=== PATIENT | male | born 1980 | race American Indian/Alaskan Native ===

== ENCOUNTER 2016-11-12 22:28 | Emergency (ER) | payer MEDICARE, MEDICAID ==
--- NOTE | 2016-11-12 23:32 | C.PDOC ---
History Of Present Illness <Liliana Melendrez Sejal - Last Filed: 11/12/16 23:17> <Reny Mcpherson - Last Filed: 11/13/16 04:07> Patient BIBA for evaluation of nausea/vomiting/diarrhea (with blood streaks), as well as SOB. Patient has h/o ESRD on HD (M,W,F) - states last dialyisis was this past (1 day late). He denies chest pain, palpitations, fever. Patient recently moved her from 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 (Reny Mcpherson) <AneeshLiliana Sejal - Last Filed: 11/12/16 23:17> History Per: Patient, EMS History/Exam Limitations: no limitations Onset/Duration Of Symptoms: Days (2) Current Symptoms Are (Timing): Still Present Severity: Moderate Pain Scale Rating Of: 1 Quality Of Discomfort: "Pain" Associated Symptoms: Nausea, Vomiting, Diarrhea <Reny Mcpherson - Last Filed: 11/13/16 04:07> Chief Complaint (Nursing): Abdominal Pain Past Medical History - Medical History PMH: HTN, Hypercholesterolemia, Chronic Kidney Disease - Social History Hx Alcohol Use: No Hx Substance Use: No - Immunization History Hx Tetanus Toxoid Vaccination: No Hx Influenza Vaccination: Yes Hx Pneumococcal Vaccination: Yes <Mars Melendreztlin Sejal - Last Filed: 11/12/16 23:17> Reviewed: Historical Data, Nursing Documentation, Vital Signs - Medical History PMH: End Stage Renal Disease, Chronic Kidney Disease Family History: States: No Known Family Hx <Reny Mcpherson - Last Filed: 11/13/16 04:07> Vital Signs: Last Vital Signs Temp 97.6 F 11/13/16 01:30 Pulse 65 11/13/16 01:30 Resp 17 11/13/16 01:30 BP 126/91 H 11/13/16 01:30 Pulse Ox 98 11/13/16 01:30 - [facility] Procedures HEMODIALYSIS (07/09/13) Review Of Systems Except As Marked, All Systems Reviewed And Found Negative. Constitutional: Negative for: Fever, Chills Cardiovascular: Negative for: Chest Pain, Palpitations Respiratory: Positive for: Shortness of Breath. Negative for: Cough Gastrointestinal: Positive for: Nausea, Vomiting, Abdominal Pain, Diarrhea ( blood streaked) <Reny Mcpherson - Last Filed: 11/13/16 04:07> Physical Exam - Physical Exam Appears: Well, Non-toxic, No Acute Distress, Other (speaking in full sentences) Skin: Normal Color, Warm, Dry, No Rash Eye(s): bilateral: Normal Inspection Oral Mucosa: Moist Cardiovascular: Rhythm Regular Respiratory: Normal Breath Sounds, No Accessory Muscle Use, No Rales, No Rhonchi , No Wheezing Gastrointestinal/Abdominal: Bowel Sounds, Soft, Tenderness (mild diffuse TTP, (- ) McBurney's, (-) Klein's) Extremity: Other (LUE AV fistula with palpable thrill) <Reny Mcpherson - Last Filed: 11/13/16 04:07> ED Course And Treatment O2 Sat by Pulse Oximetry: 100 <Liliana Melendrez - Last Filed: 11/12/16 23:17> - Laboratory Results Result Diagrams: 11/13/16 02:14 O2 Sat by Pulse Oximetry: 100 (RA) Pulse Ox Interpretation: Normal - Radiology CXR: Interpreted by Me, Viewed By Me ((+) pulmonary vascular congestion) Progress Note: Blood work, CXR , EKG ordered and reviewed. Patient given IV Morphine for pain. 3:00am - As per nurse, patient eloped from ED after she removed his IV at his request. <Reny Mcpherson - Last Filed: 11/13/16 04:07> Disposition <Liliana Melendrez - Last Filed: 11/12/16 23:17> - Disposition Disposition Time: 03:00 <Reny Mcpherson - Last Filed: 11/13/16 04:07> - Disposition Disposition: ELOPEMENT - ER ONLY Condition: STABLE Forms: [employer] ([place]) - Clinical Impression Clinical Impression: ESRD on hemodialysis, Nausea, Vomiting, Diarrhea, Abdominal pain, Dyspnea
[2016-11-13 01:32] VITALS: BP 126/91; PULSE 65; RESP 17; TEMP 97.6
[2016-11-13 02:54] LABS: POTASSIUM 5.9 mmol/L (3.6-5.2)
[2016-11-13 02:57] LABS: ALB/GLOB RATIO 0.9 (1.0-2.1); CALCIUM 7.4 mg/dl (8.6-10.4); TOTAL PROTEIN 7.7 g/dL (6.3-8.3)
[2016-11-13 03:10] LABS: TROPONIN I 0.013 ng/mL (0.00-0.120)
[2016-11-13 04:06] VITALS: O2SAT 100
--- NOTE | 2016-11-13 09:34 | RAD ---
PROCEDURE: CHEST RADIOGRAPH, 1 VIEW HISTORY: SOB COMPARISON: No prior study available comparison. FINDINGS: LUNGS: Poor inspiration with low lung volumes, crowded bronchovascular markings and bibasilar atelectasis and/or infiltrates right greater than left. Developing infiltrates should be excluded followup radiographs. PLEURA: No pneumothorax or pleural fluid seen. CARDIOVASCULAR: Heart size appears upper limits of normal/ borderline likely in part due to poor inspiration and low lung volumes as well. OSSEOUS STRUCTURES: No significant abnormalities. VISUALIZED UPPER ABDOMEN: Normal. OTHER FINDINGS: None. IMPRESSION: Poor inspiration with low lung volumes, crowded bronchovascular markings and bibasilar atelectasis and/or infiltrates right greater than left. Developing infiltrates should be excluded followup radiographs.
== END 2016-11-13 03:03 | disposition left against medical advice (07) ==
LOC: C.ER 22:28
DX: R11.2 Nausea with vomiting, unspecified (principal); R19.7 Diarrhea, unspecified; R10.9 Unspecified abdominal pain; R06.00 Dyspnea, unspecified; N18.6 End stage renal disease; Z99.2 Dependence on renal dialysis
CPT/HCPCS: 71010; 80053; 82550; 82553; 83880; 84484; 96374; 99285; J2270